=== PATIENT | male | born 1965 | race Caucasian/White ===

== ENCOUNTER 2023-03-02 16:14 | Emergency (ER) | payer BC, SELFPAY ==
[2023-03-02 16:26] VITALS: BP 129/65; PULSE 57; RESP 16; TEMP 35.7; O2SAT 99; BMI 25.4
--- NOTE | 2023-03-02 16:39 | CRLHL7_ITS ---
For Patients: As a result of the Cures Act, medical imaging exams and procedure reports are released immediately into your electronic medical record. You may view this report before your referring provider. If you have questions, please contact your health care provider. Indication: Trauma. Technique: Right foot, 3 views. Comparison: None. Findings/Impression: Bones: Alignment is normal. No displaced fractures or bone lesions. Joint spaces: Unremarkable. Soft tissues: Unremarkable. Dictated by Adriel Banks MD @ 03/02/2023 6:14:45 PM (Electronically Signed)
--- NOTE | 2023-03-02 16:39 | CRLHL7_ITS ---
For Patients: As a result of the Century Cures Act, medical imaging exams and procedure reports are released immediately into your electronic medical record. You may view this report before your referring provider. If you have questions, please contact your health care provider. Indication: Trauma. Technique: Pelvis/right hip, 3 views. Comparison: None. Findings/Impression: Bones: Alignment is normal. No displaced fractures or bone lesions. Joint spaces: Right hip arthroplasty without hardware complication. Soft tissues: Unremarkable. Dictated by Adriel Banks MD @ 03/02/2023 6:13:08 PM (Electronically Signed)
[2023-03-02] MEDS: KETOROLAC 30 MG/ML inj IM (16:50)
--- NOTE | 2023-03-02 16:52 | ED_ITS ---
HPI - Extremity Injury (Lower) General Date Seen: 03/02/23 Chief Complaint: Extremity Pain/Injury, Lower Stated Complaint: foot and leg pain Time Seen by Provider: 03/02/23 16:15 Source: patient Mode of arrival: ambulatory Limitations: no limitations History of Present Illness HPI Narrative: Patient is a 57-year-old male presenting to the emergency department for right foot pain. He states earlier today he was walking when he tripped over an elevated surface. He states after that he put pressure on his right foot has been since having 9/10 pain to the right foot whenever he walks. He denies any pressure on it at this time due to the symptoms. He has been using crutches. Last echo leave this morning at 18:00. Symptoms have been persistent so he came to be evaluated. also stenosis of the past couple hours right hip 8. Has had previous right hip replacement. Has been using ice with some improvement in symptoms. Most of the pain is on the plantar aspect of around the base of the 2nd metatarsal. also notes he has had 2 months of plantar fasciitis that he has been treating. Related Data Home Medications Medication Instructions Recorded Confirmed hydrochlorothiazide 25 mg tablet 25 mg PO DAILY 03/02/23 03/02/23 lisinopril 10 mg tablet 10 mg PO DAILY 03/02/23 03/02/23 Allergies Allergy/AdvReac Type Severity Reaction Status Date / Time Penicillins Allergy Intermediate Verified 03/02/23 16:26 codeine Allergy Unknown Verified 03/02/23 16:26 morphine Allergy Unknown Verified 03/02/23 16:26 Review of Systems Narrative: Negative unless stated in HPI PFSH PFSH Social History Smoking Status: Never smoker How often do you have a drink containing alcohol: never AUDIT-C Alcohol total score: 0 Non-prescribed substance use: denies use Exam Narrative: Exam Narrative: Const: Well-nourished, Well-developed, in mild distress Eyes: PERRL, no conjunctival injection, and symmetrical lids HENT: Atraumatic external nose and ears. Moist mucous membranes. MSK:Extremities w/o deformity, Normal Active ROM, tenderness to palpation to base of the 2nd metatarsal on the right foot, mild tenderness to palpation of the right hip, no tenderness noted anywhere else Skin: Warm, Dry. No rashes or lesions. Neuro: Normal Muscle tone, No focal neurological deficits. Psych: Awake, Alert, & Oriented x3. Appropriate mood and affect. Const: Vital Signs, click to edit/add: Vital Signs - 24 hr 03/02/23 16:26 Temperature 96.2 F L Pulse Rate [Pulse Oximeter] 57 L Respiratory Rate 16 Blood Pressure [Ri ght Upper Arm] 129/65 Pulse Oximetry 99 Oxygen Delivery Me thod Room Air Course Vital Signs Vital signs: Initial Vital Signs Temperature 96.2 F L 03/02/23 16:26 Temperature Source Temporal Artery Scan 03/02/23 16:26 Pulse Rate 57 L 03/02/23 16:26 Respiratory Rate 16 03/02/23 16:26 Blood Pressure 129/65 03/02/23 16:26 Blood Pressure Mean 86 03/02/23 16:26 Blood Pressure Position Sitting 03/02/23 16:26 Pulse Oximetry 99 03/02/23 16:26 Oxygen Delivery Method Room Air 03/02/23 16:26 Vital Signs Temperature 96.2 F L 03/02/23 16:26 Pulse Rate 57 L 03/02/23 16:26 Respiratory Rate 16 03/02/23 16:26 Blood Pressure 129/65 03/02/23 16:26 Pulse Oximetry 99 03/02/23 16:26 Oxygen Delivery Method Room Air 03/02/23 16:26 Temperature 96.2 F L 03/02/23 16:26 Pulse Rate 57 L 03/02/23 16:26 Respiratory Rate 16 03/02/23 16:26 Blood Pressure 129/65 03/02/23 16:26 Pulse Oximetry 99 03/02/23 16:26 Oxygen Delivery Method Room Air 03/02/23 16:26 Medications Administered Medications: Discontinued Medications Generic Name Dose Route Start Last Admin Trade Name Freq PRN Reason Stop Dose Admin Ketorolac Tromethamine 30 mg 03/02/23 16:39 03/02/23 16:50 Ketorolac 30 Mg/Ml Inj IM 03/02/23 16:40 30 mg ONCE ONE Administration MDM - Extremity Injury (Lower) MDM Narrative Medical decision making narrative: patient is a 57-year-old male presenting for right foot pain after a fall. He is tender to palpation around the 2nd meta tarsal area. His operative report weight on it due to pain. He is uncomfortable is not crying arthritis. Has been getting around with crutches today. Has taken Aleve with some improvement symptoms. He was given shot of Toradol here in the emergency department. X- rays of the right foot and right hip showed no acute abnormalities. He has no pain anywhere else at this time. Most likely is has a foot sprain. He can be discharged home. He is agreeable with this plan. Imaging Data Hip x-ray: Radiologist's impression: Bones: Alignment is normal. No displaced fractures or bone lesions. Joint spaces: Right hip arthroplasty without hardware complication. Soft tissues: Unremarkable. Dictated by Adriel Banks MD @ 03/02/2023 6:13:08 PM right foot x-ray: Radiologist's impression: Bones: Alignment is normal. No displaced fractures or bone lesions. Joint spaces: Unremarkable. Soft tissues: Unremarkable. Dictated by Adriel Banks MD @ 03/02/2023 6:14:45 PM Discharge Plan Discharge Clinical Impression: Foot sprain Qualifiers: Encounter type: initial encounter Laterality: right Qualified Code(s): S93.601A - Unspecified sprain of right foot, initial encounter Patient Disposition: Home, Self-Care Condition: Stable Instructions: Foot Sprain (ED) Additional Instructions: take Tylenol and ibuprofen for pain. Wear the stiff-soled shoe as needed for comfort. Return for new or worsening symptoms Prescriptions: No Action lisinopril 10 mg tablet 10 mg PO DAILY hydrochlorothiazide 25 mg tablet 25 mg PO DAILY Follow Up/Referrals: Helene Keating DO [Primary Care Provider] - Stand Alone Forms: [facility] Info Instructions
== END 2023-03-02 19:03 | disposition home or self-care (01) ==
PROVIDERS: Emergency Provider Student in an Organized Health Care Education/Training Program; PCP Family Medicine
DX: S93.601A Unspecified sprain of right foot, initial encounter (principal); W01.0XXA Fall on same level from slipping, tripping and stumbling without subsequent striking against object, initial encounter
CPT/HCPCS: 73502; 73630; 96372; 99282; 99284; J1885

== ENCOUNTER 2023-04-26 15:00 | Outpatient (RCR) | payer BC, SELFPAY | END 2023-08-24 23:59 | disposition home or self-care (01) | PROVIDERS: PCP Family Medicine; Visit Provider Family Medicine | DX: M72.2 Plantar fascial fibromatosis (principal); M79.671 Pain in right foot; M25.579 Pain in unspecified ankle and joints of unspecified foot; Z74.09 Other reduced mobility; Z51.89 Encounter for other specified aftercare | CPT/HCPCS: 97110; 97112; 97140; 97161 ==

== ENCOUNTER 2023-10-17 20:02 | Emergency (ER) | payer BC, SELFPAY ==
[2023-10-17 20:12] VITALS: BP 128/95; PULSE 96; RESP 18; TEMP 36.2; O2SAT 97; BMI 25.2
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
--- NOTE | 2023-10-17 20:30 | CRLHL7_ITS ---
For Patients: As a result of the Cures Act, medical imaging exams and procedure reports are released immediately into your electronic medical record. You may view this report before your referring provider. If you have questions, please contact your health care provider. INDICATION: MCP pain and swelling. TECHNIQUE: Right hand 1st digit, 3 view. COMPARISON: None. FINDINGS: No acute fracture or dislocation. Mild degenerative changes of the 1st CMC joint and 1st MCP joint. Soft tissues are unremarkable. IMPRESSION: 1. No acute findings. 2. Mild degenerative changes of the 1st CMC joint and 1st MCP joint. Dictated by Destinee Kirkpatrick MD @ 10/17/2023 10:52:43 PM (Electronically Signed)
[2023-10-17] MEDS: IBUPROFEN 400 MG TABLET 800 MG PO (20:47)
[2023-10-17 22:35] VITALS: BP 121/74; PULSE 85; RESP 18; TEMP 36.7; O2SAT 97
[2023-10-17 22:37] VITALS: BP 121/74; PULSE 85; RESP 18; TEMP 36.7
== END 2023-10-17 22:37 | disposition home or self-care (01) ==
PROVIDERS: Emergency Provider Family Medicine; PCP Family Medicine
DX: S63.601A Unspecified sprain of right thumb, initial encounter (principal); W22.8XXA Striking against or struck by other objects, initial encounter
CPT/HCPCS: 29130; 73140; 99283; 99284; A9270

== ENCOUNTER 2025-01-16 10:12 | Emergency (ER) | payer OTHER, SELFPAY ==
[2025-01-16 10:14] VITALS: BP 135/85; PULSE 50; RESP 16; TEMP 35.6; O2SAT 98; BMI 25.4
--- NOTE | 2025-01-16 11:04 | ED.WOUNDLAC ---
HPI - Wound/Laceration General Time Seen by Provider: 11:04 Date Seen: 01/16/25 Chief Complaint: Laceration/Wound Stated Complaint: Lac L thumb Time Seen by Provider: 01/16/25 11:03 Source: patient and RN notes reviewed Mode of arrival: ambulatory Limitations: no limitations History of Present Illness HPI narrative: Patient is a 59-year-old male presenting to the ER with a laceration to his left thumb, he accidentally cut his thumb, happened about 15 minutes prior to arrival. Tetanus is up-to-date in 2019. He is not anticoagulated. He was cutting tomatoes, had just sharpened his knife. He has bleeding controlled now, did bleed immediately, he notes a flap to the end of the thumb. Related Data Home Medications ?Medication ?Instructions ?Recorded ?Confirmed lisinopril 10 mg tablet 10 mg PO DAILY 03/02/23 01/16/25 Allergies Allergy/AdvReac Type Severity Reaction Status Date / Time Penicillins Allergy Intermediate Verified 01/16/25 10:19 codeine Allergy Unknown Verified 01/16/25 10:19 morphine Allergy Unknown Verified 01/16/25 10:19 Review of Systems Narrative: As per HPI. PFSH PFS Social History Smoking Status: Never smoker How often do you have a drink containing alcohol: never AUDIT-C Alcohol total score: 0 Non-prescribed substance use: denies use Exam Const: Vital Signs, click to edit/add: Vital Signs - 24 hr 01/16/25 10:14 Temperature 96.1 F L Pulse Rate [Right Pulse Oximeter] 50 L Respiratory Rate 16 Blood Pressure [Ri ght Upper Arm] 135/85 Pulse Oximetry 98 Oxygen Delivery Me thod Room Air This 59-year-old male is alert, interactive, no apparent distress. He has a deep flap into the subcutaneous tissue on the distal medial aspect of his thumb. It does not go into the nail but the laceration does abut the end of the nail. Total length is under 0.5 cm but there is a deep flap, starts bleeding immediately when I remove his bandages. It is just into the subcutaneous tissue, nothing else is damage, no nail bed damage, no nail damage. He has full range of motion of the thumb. Certainly seems to feel pain at the distal aspect of the thumb. Procedure note: Wound is actively bleeding, 2 mL of 1% lidocaine with epinephrine is drawn up, 1.5 mL is used to anesthetize the wound. Standard sterile technique is observed 3 simple interrupted sutures using 4-0 Ethilon are placed with good approximation of the wound and hemostasis is observed. Patient tolerated the procedure, no complications noted at this time. Bacitracin applied and bandages used to cover the wound. Documenting provider has reviewed patient's vital signs: yes Course Vital Signs Vital signs: Initial Vital Signs Temperature 96.1 F L 01/16/25 10:14 Temperature Source Temporal Artery Scan 01/16/25 10:14 Pulse Rate 50 L 01/16/25 10:14 Respiratory Rate 16 01/16/25 10:14 Blood Pressure 135/85 01/16/25 10:14 Blood Pressure Mean 101 01/16/25 10:14 Blood Pressure Position Sitting 01/16/25 10:14 Pulse Oximetry 98 01/16/25 10:14 Oxygen Delivery Method Room Air 01/16/25 10:14 Vital Signs Temperature 96.1 F L 01/16/25 10:14 Pulse Rate 50 L 01/16/25 10:14 Respiratory Rate 16 01/16/25 10:14 Blood Pressure 135/85 01/16/25 10:14 Pulse Oximetry 98 01/16/25 10:14 Oxygen Delivery Method Room Air 01/16/25 10:14 Temperature 96.1 F L 01/16/25 10:14 Pulse Rate 50 L 01/16/25 10:14 Respiratory Rate 16 01/16/25 10:14 Blood Pressure 135/85 01/16/25 10:14 Pulse Oximetry 98 01/16/25 10:14 Oxygen Delivery Method Room Air 01/16/25 10:14 Discharge Plan Discharge Clinical Impression: Laceration of thumb Qualifiers: Encounter type: initial encounter Damage to nail status: without damage Foreign body presence: without foreign body Laterality: left Qualified Code(s): S61.012A - Laceration without foreign body of left thumb without damage to nail, initial encounter Patient Disposition: Home, Self-Care Condition: Stable Instructions: Care For Your Stitches (ED), Finger Laceration (ED) Additional Instructions: Need to keep wound clean and dry, use bacitracin and bandages when up and about in public. It is fine to shower and wash your hand, avoid dishwashing, hot tubs until wound has completely healed. Need to assess the wound in about 7-10 days for suture removal, can make a clinic appointment. If there is concern of infection, please seek re-evaluation. Activity Level: Activity as Tolerated Prescriptions: No Action lisinopril 10 mg tablet 10 mg PO DAILY Follow Up/Referrals: Helene Keating DO [Primary Care Provider, Family Practice] Stand Alone Forms: [facility] Info Instructions
[2025-01-16] MEDS: LIDOCAINE 1%-EPI 1:100,000 2 ML INFILTRATI (11:31)
[2025-01-16] MEDS: BACITRACIN 0.9 GM PACKET 1 EACH TOPICAL (11:31)
== END 2025-01-16 12:08 | disposition home or self-care (01) ==
PROVIDERS: Emergency Provider Family Medicine; PCP Family Medicine
DX: S61.012A Laceration without foreign body of left thumb without damage to nail, initial encounter (principal); W26.0XXA Contact with knife, initial encounter
CPT/HCPCS: 12001; 99283; A9270